=== PATIENT | male | born 1950 | race Caucasian/White ===

== ENCOUNTER 2023-07-18 06:52 | Day surgery (SDC) | payer OTHER ==
[~2023-07-18] VITALS: Ht 170.2 cm; Wt 73.4 kg
[~2023-07-18 06:52] MED LIST: ATOR10 PO; BELBUCA150 MCG BC; FINASTERIDE1 MG PO; MOBIC15 MG PO; NEUPRO; ROPINIROLE HCL3 M2 PO; Robaxin750 MG PO
[2023-07-18] MEDS ORDERED: MULVITA PO (07:18)
[2023-07-18] MEDS ORDERED: Vitamin D1000 UNI1 PO (07:18)
[2023-07-18] MEDS ORDERED: FISH OIL 1,0001 EA10 PO (07:20)
--- NOTE | 2023-07-18 08:38 | NUR ---
07/18/23 0838 Renate Carias TIME OUT PERFORMED FOR A BLOCK WITH DR DARLING.
--- NOTE | 2023-07-18 09:23 | NUR ---
07/18/23 0923 Beth No PT IN BEARCHAIR WITH TMAX, HEAD SUPPORTED WITH FOAM HEADREST, RIGHT ARM IS SECURED IN A ARM BOARD WITH STRAP, WEDGE PILLOW IS UNDER BILATERAL LES WITH TWO SAFETY STRAPS OVER THEM. PT HAS A CUT ON LEFT HAND TOP SIDE, DOCTOR AWARE
[2023-07-18 12:47] VITALS: BP 128/70
--- NOTE | 2023-07-18 13:13 | NUR ---
07/18/23 1313 FLORENCIO BARR PT ON BUPRENORHPINE PATCHES AT HOME, FOR BASELINE ACHES AND JOINT PAIN. AWARE, PER H&P. PT BEING SENT HOME WITH RX FOR OXYCODONE FOR POST OPERATIVE PAIN. CALL TO PHARMACY TO CHECK INTERACTIONS. SPOKE WITH VON IN PHARMACY WHO ADVISED THE BUPRENORHPINE COULD HAVE AN ANTAGONISTIC EFFECT ON THE OXYCODONE, PT MAY BE WELL SUITED TO USE TYLERNOL/IBUPROFEN, OR OTHER NON NARCOTIC PAIN MANAGMENT OPTIONS. PT CAN CONTINUE TO USE BUPRENORHPINE PATCHES AND MAY NEED A HIGHER DOSE OF OXYCODONE FOR POST OPERATIVE PAIN MANAGEMENT. PT COUNSELED ON USE OF NON-NARCOTIC PAIN MEDICATIONS AND USE OF POLAR ICE PACK AT HOME TO MINIMIZE SWELLING AND PAIN.
== END 2023-07-18 13:35 | disposition home or self-care (01) ==
LOC: ORSCSDS 06:52
PROVIDERS: Orthopaedic Surgery
PROC: 0LS44ZZ Reposition Left Upper Arm Tendon, Percutaneous Endoscopic Approach (ICD-10-PCS; principal; 2023-07-18 08:30)
PROC: 0RNK4ZZ Release Left Shoulder Joint, Percutaneous Endoscopic Approach (ICD-10-PCS; principal; 2023-07-18 08:30)
PROC: 0LQ24ZZ Repair Left Shoulder Tendon, Percutaneous Endoscopic Approach (ICD-10-PCS; principal; 2023-07-18 08:30)
DX: S46.012A Strain of muscle(s) and tendon(s) of the rotator cuff of left shoulder, initial encounter (principal); S46.112A Strain of muscle, fascia and tendon of long head of biceps, left arm, initial encounter; Z79.899 Other long term (current) drug therapy
CPT/HCPCS: C1713; J0171; J0690; J1100; J1885; J2250; J2405; J2704; J2795; J3010; J7120

== ENCOUNTER 2024-06-07 03:43 | Observation (INO) | payer OTHER ==
[~2024-06-07] VITALS: Ht 170.2 cm; Wt 68.6 kg
[~2024-06-07 03:43] MED LIST changes: -BELBUCA150 MCG BC; +BUPRENORPHIN-N1 EAC1 SL; +FINA5 PO; -FINASTERIDE1 MG PO; +FISH OIL 1,0001 EA10 PO; +MULVITA PO; +Vitamin D1000 UNI1 PO
[2024-06-07] MEDS ORDERED: Ondansetron HCl 2 MG / ML 2ML Vial IV ONE ×2 (03:55→08:35)
[2024-06-07] MEDS ORDERED: Morphine Sulfate 4 MG/1 ML Injection IV ONE ×2 (03:55→08:35)
[2024-06-07 04:09] LABS: BASOPHILS ABSOLUTE AUTO 0.02 K/mm3 (0.00-0.23); BASOPHILS PERCENT AUTO 0 % (0-2); EOSINOPHILS ABSOLUTE AUTO 0.07 K/mm3 (0.00-0.68); EOSINOPHILS PERCENT AUTO 1 % (0-6); Hematocrit 44.3 % (37.0-53.0); Hemoglobin 14.7 g/dL (13.5-17.5); IMMATURE GRAN ABSOLUTE AUTO 0.05 K/mm3 (0.00-0.10); IMMATURE GRAN PERCENT AUTO 1 % (0-1); LYMPHOCYTES ABSOLUTE AUTO 1.03 K/mm3 (0.84-5.20); LYMPHOCYTES PERCENT AUTO 10 % (21-46); MONOCYTES ABSOLUTE AUTO 0.93 K/mm3 (0.16-1.47); MONOCYTES PERCENT AUTO 9 % (4-13); Mean Corpuscular HGB 30.9 pg (26.0-34.0); Mean Corpuscular HGB Conc 33.2 g/dL (31.5-36.5); Mean Corpuscular Volume 93 fL (80-100); Mean Platelet Volume 10.2 fL (9.1-12.4); NEUTROPHILS ABSOLUTE AUTO 8.45 K/mm3 (1.96-9.15); NEUTROPHILS PERCENT AUTO 80 % (41-73); Platelet Count 257 K/mm3 (150-400); RDW Coefficient Variation 13.1 % (11.7-14.2); RDW Standard Deviation 45.4 fL (35.1-46.3); Red Blood Cell Count 4.75 M/mm3 (4.30-5.90); White Blood Cell Count 10.55 K/mm3 (4.00-11.30)
[2024-06-07 04:20] LABS: Albumin, Blood 3.7 g/dL (3.4-5.0); Albumin/Globulin Ratio 1.2 (0.8-1.8); Bilirubin, Total 0.5 mg/dL (0.1-1.0); Bun/Creatinine Ratio 21.3 (12.0-20.0); Calcium, Blood 9.5 mg/dL (8.5-10.1); Creatinine, Blood 1.08 mg/dL (0.60-1.20); Globulin, Blood 3.2 g/dL (2.2-4.0); Potassium, Blood 4.1 mmol/L (3.5-5.5); Total Protein, Blood 6.9 g/dL (6.4-8.2)
[2024-06-07] MEDS ORDERED: Ondansetron HCl 2 MG / ML 2ML Vial IV PRN (09:50)
[2024-06-07] MEDS ORDERED: FLU VACC TS2024-25(6MOS UP)/PF 45 MCG/0.5 ML SYRINGE IM PRN (09:50)
[2024-06-07] MEDS ORDERED: Prochlorperazine Edisylate 10 mg Vial IV PRN (09:50)
[2024-06-07] MEDS ORDERED: Morphine Sulfate 4 MG/1 ML Injection IV PRN ×2 (09:55→10:40)
[2024-06-07] MEDS ORDERED: NS 1,000 ML IV SCH (10:00)
[2024-06-07 12:02] VITALS: BP 106/71
[2024-06-07] MEDS ORDERED: Acetaminophen 650 MG Supp PR PRN (12:35)
[2024-06-07] MEDS ORDERED: ATOR10 PO (14:13)
[2024-06-07 14:15] VITALS: BP 126/68
[2024-06-07] MEDS ORDERED: VOLTAREN ARTHRI20 GM TOP (14:22)
[2024-06-07] MEDS ORDERED: MAGNESIUM OXID500 MG PO (14:23)
[2024-06-07] MEDS ORDERED: MULTI-VITAMIN1 EAC2 PO (14:24)
[2024-06-07] MEDS ORDERED: NARCAN4 M1 (14:26)
[2024-06-07] MEDS ORDERED: Micro-K8 MEQ PO (14:27)
[2024-06-07] MEDS ORDERED: ROPINIROLE HCL2 MG PO (14:29)
[2024-06-07] MEDS ORDERED: TAMS.4ER PO (14:29)
[2024-06-07] MEDS ORDERED: Naloxone HCL 4 MG SPRAY (1 UNIT) PRN (16:55)
[2024-06-07] MEDS ORDERED: CloNIDine HCL 0.1 MG Patch TOP ONE (17:20)
[2024-06-07 20:38] VITALS: BP 120/71
[2024-06-07] MEDS ORDERED: Atorvastatin 10 MG Tab PO SCH (21:00)
[2024-06-07] MEDS ORDERED: Tamsulosin HCl 0.4 MG Cap PO SCH (21:00)
[2024-06-08 02:48] VITALS: BP 130/65
[2024-06-08 04:30] LABS: BASOPHILS ABSOLUTE AUTO 0.01 K/mm3 (0.00-0.23); BASOPHILS PERCENT AUTO 0 % (0-2); EOSINOPHILS ABSOLUTE AUTO 0.04 K/mm3 (0.00-0.68); EOSINOPHILS PERCENT AUTO 1 % (0-6); Hematocrit 40.8 % (37.0-53.0); Hemoglobin 13.7 g/dL (13.5-17.5); IMMATURE GRAN ABSOLUTE AUTO 0.02 K/mm3 (0.00-0.10); IMMATURE GRAN PERCENT AUTO 0 % (0-1); LYMPHOCYTES ABSOLUTE AUTO 0.92 K/mm3 (0.84-5.20); LYMPHOCYTES PERCENT AUTO 16 % (21-46); MONOCYTES ABSOLUTE AUTO 0.71 K/mm3 (0.16-1.47); MONOCYTES PERCENT AUTO 12 % (4-13); Mean Corpuscular HGB 31.2 pg (26.0-34.0); Mean Corpuscular HGB Conc 33.6 g/dL (31.5-36.5); Mean Corpuscular Volume 93 fL (80-100); Mean Platelet Volume 10.1 fL (9.1-12.4); NEUTROPHILS ABSOLUTE AUTO 4.15 K/mm3 (1.96-9.15); NEUTROPHILS PERCENT AUTO 71 % (41-73); Platelet Count 204 K/mm3 (150-400); RDW Coefficient Variation 13.2 % (11.7-14.2); Red Blood Cell Count 4.39 M/mm3 (4.30-5.90); White Blood Cell Count 5.85 K/mm3 (4.00-11.30)
[2024-06-08 04:47] LABS: International Normalized Ratio 1.01; Prothrombin Time Results 10.8 Sec (9.7-11.5)
[2024-06-08 05:08] LABS: Albumin, Blood 3.3 g/dL (3.4-5.0); Albumin/Globulin Ratio 1.1 (0.8-1.8); Bun/Creatinine Ratio 17.8 (12.0-20.0); Calcium, Blood 8.5 mg/dL (8.5-10.1); Creatinine, Blood 1.07 mg/dL (0.60-1.20); Globulin, Blood 2.9 g/dL (2.2-4.0); Potassium, Blood 3.6 mmol/L (3.5-5.5); Total Protein, Blood 6.2 g/dL (6.4-8.2)
[2024-06-08 07:03] VITALS: BP 133/66
[2024-06-08] MEDS ORDERED: Enoxaparin 40 MG/0.4 ML SYR SC SCH (09:00)
[2024-06-08 14:47] VITALS: BP 102/55
== END 2024-06-08 18:11 | disposition home or self-care (01) ==
LOC: ER 03:43 → SURS 03:44
PROVIDERS: Emergency Medicine; Student in an Organized Health Care Education/Training Program; ADMIT Family Medicine
DX: K56.600 Partial intestinal obstruction, unspecified as to cause (principal); E78.5 Hyperlipidemia, unspecified; Z66 Do not resuscitate; Z79.899 Other long term (current) drug therapy; Z88.8 Allergy status to other drugs, medicaments and biological substances
CPT/HCPCS: 36415; 71045; 74177; 74250; 80053; 83605; 83690; 85025; 85610; 96361; 96372; 96374-59; 96375; 96376; 99285-25; A9270; G0378; J0780; J1650; J2270; J2405; J7030; Q9967